=== PATIENT | male | born 1980 | race Caucasian/White ===

== ENCOUNTER 2017-04-02 20:35 | Emergency (ER) | payer OTHER ==
[~2017-04-02] VITALS: Ht 177.8 cm; Wt 160.5 kg
[~2017-04-02 20:35] MED LIST: KEFLEX500 MG PO
[2017-04-02] MEDS ORDERED: PROTONIX40 MG PO (21:43)
[2017-04-02 21:54] VITALS: BP 155/101
== END 2017-04-02 21:58 | disposition home or self-care (01) ==
LOC: EME 20:35
DX: T18.128A Food in esophagus causing other injury, initial encounter (principal); K21.9 Gastro-esophageal reflux disease without esophagitis; I10 Essential (primary) hypertension; Z87.891 Personal history of nicotine dependence; Z88.8 Allergy status to other drugs, medicaments and biological substances
CPT/HCPCS: 99281; 99283